=== PATIENT | male | born 1940 | race Caucasian/White ===

== ENCOUNTER 2019-02-23 14:21 | Inpatient (IN) ==
[2019-02-23 15:06] LABS: Basophils % 0.2 %; Eosinophils # 0.1 K/mcL (0.0-0.6); Eosinophils % 0.9 %; Immature Granulocytes % 0.6 % (0-4); Mean Corpuscular HGB Conc 31.3 g/dL (31.6-35.5); Mean Platelet Volume 10.1 fL (9.4-12.4); Monocytes # 0.5 K/mcL (0.0-1.3); Monocytes % 7.6 %; Platelet Count 267 K/mcL (140-400); Red Cell Distribution Width 17.1 % (11.5-14.5); Segmented Neutrophils % 75.7 %; White Blood Count 6.5 K/mcL (4.3-11.1)
[2019-02-23 15:28] LABS: BUN/Creatinine Ratio 16 (6-26); Blood Urea Nitrogen 17 mg/dL (8-23); Calcium 8.7 mg/dL (8.6-10.3); Carbon Dioxide 25 mEq/L (23-29); Chloride 100 mEq/L (98-107); Glucose 106 mg/dL (70-105); Osmolality,Calculated 278 (280-300); Potassium 4.4 mEq/L (3.5-5.1); Sodium 133 mEq/L (136-145); Troponin I < 0.03 ng/mL (< 0.04); eGFR For African Americans > 60 (> 60); eGFR For Non-African Americans > 60 (> 60)
[2019-02-23] MEDS ORDERED: cefTRIAXone 1,000 MG in Water for inj. (sterile) 10 ML IVP ONE (16:07)
[2019-02-23] MEDS ORDERED: Azithromycin 500 MG in D5% in Water 250 ML IVPB ONE (16:07)
[2019-02-23] MEDS ORDERED: Furosemide 40 MG/4 ML VIAL IVP ONE (16:08)
[2019-02-23] MEDS ORDERED: Pantoprazole 40 MG VIAL IVP ONE (16:11)
--- NOTE | 2019-02-23 16:12 | Emergency Department Note ---
Disposition Clinical Impression: CHF exacerbation Qualifiers: Heart failure type: unspecified Qualified Code(s): I50.9 - Heart failure, unspecified Anemia Qualifiers: Anemia type: unspecified type Qualified Code(s): D64.9 - Anemia, unspecified Pneumonia Qualifiers: Pneumonia type: due to unspecified organism Laterality: unspecified laterality Lung location: unspecified part of lung Qualified Code(s): J18.9 - Pneumonia, unspecified organism Disposition: Admitted As Inpatient Referrals: Mary Segura MD [Primary Care Provider] - Forms: ED Satisfaction Letter Time of Disposition: 17:06 General Adult HPI - General Chief complaint: ED Shortness of Breath/Dyspnea Stated complaint: CHF exacerbation Time Seen by Provider: 02/23/19 15:01 Source: patient Limitations: no limitations Nursing Notes Reviewed: Yes Vital Signs Reviewed: Yes - History of Present Illness HPI Narrative: 70-year-old male presents emergency department with concern for increasing shortness of breath or last few days. Reports that he has been sitting in a recliner. Patient was recently admitted for concern for legionnaire's disease as he was having excessive diarrhea. Patient reports undulating fever the last several days. He has had increasing peripheral edema as well. Patient denies any cough, but does report shortness of breath, no chest pain, does report black stools. Pain Scale: 0 - Related Data Home Medications Medication Instructions Recorded Confirmed Albuterol Sulfate [Ventolin Hfa] 2 puff IH Q4H PRN 09/21/16 02/23/19 Budesonide/Formoterol 160/4.5 2 puff IH BIDR 09/21/16 02/23/19 [Symbicort 160/4.5] Metoprolol [Lopressor] 25 mg PO DAILY 09/21/16 02/23/19 Pantoprazole Sodium [Protonix] 40 mg PO DAILY 09/21/16 02/23/19 Simvastatin [Zocor] 40 mg PO HS 09/21/16 02/23/19 Tamsulosin [Flomax] 0.4 mg PO DAILY 09/21/16 02/23/19 Apixaban [Eliquis] 5 mg PO DAILY 01/19/17 02/23/19 Fluticasone Propionate Nasal 2 spray NS DAILY 01/19/17 02/23/19 [Flonase] Allergies Allergy/AdvReac Type Severity Reaction Status Date / Time acetaminophen [From Percocet] AdvReac Unknown Verified 02/17/19 08:43 dutasteride [From Avodart] AdvReac Worsening Verified 02/17/19 08:43 urination oxycodone [From Percocet] AdvReac Unknown Verified 02/17/19 08:43 All systems ED: reviewed and negative except as stated. Review of Systems: As Per HPI Constitutional: Reports: fever Cardiovascular: Denies: chest pain Respiratory: Reports: dyspnea, sputum production. Denies: cough Gastrointestinal: Reports: melena. Denies: abdominal pain, nausea, vomiting Genitourinary: Denies: dysuria Past Medical History - Past Medical History Attestation: Yes The following information was validated with the patient. Medical history: Reports: arthritis, atrial fibrillation, CHF, coronary artery disease, GERD, hypertension Surgical history: Reports: coronary bypass (CABG) Psychiatric history: Reports: no psych history - Social History Smoking Status: Former smoker Smokeless Tobacco Status: No Alcohol use: Reports: occasionally Drug use: Reports: none Physical Exam - General Limitations: no limitations General appearance: alert, in no apparent distress - Head Head exam: normocephalic - Eye Eye exam: Present: EOMI, scleral icterus - ENT ENT exam: mucous membranes moist - Neck Neck exam: Present: trachea midline - Chest Chest inspection: Present: symmetric chest wall rise - Respiratory Respiratory exam: Present: normal lung sounds bilaterally. Absent: respiratory distress, accessory muscle use - Cardiovascular Cardiovascular exam: Present: regular rate, irregular rhythm - Abdominal Exam Abdominal exam: Present: soft, Non-Tender. Absent: distention, guarding, rebound, rigidity - Extremities Exam Extremities exam: Present: normal capillary refill - Back Exam Back exam: Present: full ROM - Neurological Exam Neurological exam: Present: alert, oriented X3 - Psychiatric Psychiatric exam: Present: normal affect, normal mood - Skin Skin exam: Present: warm, dry, intact, normal color. Absent: rash Course Vital Signs Temperature 97.9 F 02/23/19 14:26 Pulse Rate 90 02/23/19 14:26 Respiratory Rate 18 02/23/19 14:26 Blood Pressure 133/71 02/23/19 14:26 O2 Sat by Pulse Oximetry 96 02/23/19 14:26 Temperature 97.9 F 02/23/19 14:26 Pulse Rate 81 02/23/19 16:53 Respiratory Rate 16 02/23/19 16:53 Blood Pressure 138/89 02/23/19 16:53 O2 Sat by Pulse Oximetry 98 02/23/19 16:53 Oxygen Delivery Oxygen Delivery Room Air Medical Decision Making - MDM Narrative Medical decision making narrative: 78-year-old male this emergency department with concern for increasing shortness of breath. EKG did not reveal any ischemic ST changes. Troponin negative. BNP mildly increased from baseline. Chest x-ray that was obtained reveals interval worsening of coarse reticular opacities throughout the lungs that is suggestive of pulmonary edema with atypical infection considered less likely. Patient with history of COPD. Also concern that patient may be more anemic. Have held off on administering steroids at this time as patient does not appear to be having a COPD exacerbation in the setting of possible gastrointestinal bleed. We have sent a Hemoccult and have given a dose of Protonix for reports of melenic stool in the setting of worsening anemia. Patient was given Rocephin, azithromycin, vancomycin. We have sent a Legionella, strep, MRSA swab. Hepatic transaminases were normal out of concern for possibility and patient may have been jaundiced. Patient was given a dose of Lasix for his pulmonary edema. At time of admission, patient not in any acute distress and hemodynamically stable. Dr. Esqueda agreed to accept the patient for admission. Family agree with plan. Chest X-Ray 02/23/19 14:29 IMPRESSION: 1. Interval worsening of coarse reticular opacities throughout the lungs suggestive of pulmonary edema. Atypical infection is considered less likely but can have a similar appearance. 2. COPD. 3. Cardiomegaly. D/ / 02/23/2019 15:56:06 Crystal Chun MD / [facility] Interpreting Provider: Crystal Chun MD - Lab Data Result diagrams: 02/23/19 14:52 02/23/19 14:52 Lab Results 02/23/19 02/23/19 02/23/19 Range/Units 14:52 14:52 14:52 WBC 6.5 (4.3-11.1) K/mcL RBC 4.00 L (4.19-5.50) M/mcL Hgb 10.0 L (12.9-16.9) g/dL Hct 32.0 L (37.5-50.1) % MCV 80.0 L (83.0-100.0) fL MCH 25.0 L (28.0-33.3) pg MCHC 31.3 L (31.6-35.5) g/dL RDW 17.1 H (11.5-14.5) % Plt Count 267 (140-400) K/mcL MPV 10.1 (9.4-12.4) fL Immature Gran % 0.6 (0-4) % Seg Neutrophils % 75.7 % Lymphocytes % 15.0 % Monocytes % 7.6 % Eosinophils % 0.9 % Basophils % 0.2 % Neutrophils # 5.0 (1.6-8.9) K/mcL Lymphocytes # 1.0 (0.6-4.6) K/mcL Monocytes # 0.5 (0.0-1.3) K/mcL Eosinophils # 0.1 (0.0-0.6) K/mcL Basophils # 0.0 (0.0-0.2) K/mcL Sodium 133 L (136-145) mEq/L Potassium 4.4 (3.5-5.1) mEq/L Chloride 100 (98-107) mEq/L Carbon Dioxide 25 (23-29) mEq/L BUN 17 (8-23) mg/dL Creatinine 1.08 (0.70-1.30) mg/dL Est GFR ( Amer) > 60 (> 60) Est GFR (Non-Af Amer) > 60 (> 60) BUN/Creatinine Ratio 16 (6-26) Glucose 106 H (70-105) mg/dL Calculated Osmolality 278 L (280-300) Lactic Acid 1.6 (0.5-2.2) mmol/L Calcium 8.7 (8.6-10.3) mg/dL Total Bilirubin 0.7 (0.3-1.0) mg/dL Direct Bilirubin 0.2 (0.0-0.2) mg/dL Indirect Bilirubin 0.5 (0.0-1.2) mg/dL AST 25 (13-39) Units/L ALT 24 (7-52) Units/L Alkaline Phosphatase 139 H (34-104) Units/L Troponin I < 0.03 (< 0.04) ng/mL B-Natriuretic Peptide (Less than 100) pg/mL Serum Total Protein 6.9 (6.4-8.9) g/dL Albumin 3.4 L (3.5-5.7) g/dL Globulin 3.5 (2.4-3.5) g/dL Albumin/Globulin Ratio 1.0 L (1.1-2.2) Lipase 26 (11-82) Units/L Stool Occult Bld Scrn (Negative) 02/23/19 02/23/19 Range/Units 14:52 16:44 WBC (4.3-11.1) K/mcL RBC (4.19-5.50) M/mcL Hgb (12.9-16.9) g/dL Hct (37.5-50.1) % MCV (83.0-100.0) fL MCH (28.0-33.3) pg MCHC (31.6-35.5) g/dL RDW (11.5-14.5) % Plt Count (140-400) K/mcL MPV (9.4-12.4) fL Immature Gran % (0-4) % Seg Neutrophils % % Lymphocytes % % Monocytes % % Eosinophils % % Basophils % % Neutrophils # (1.6-8.9) K/mcL Lymphocytes # (0.6-4.6) K/mcL Monocytes # (0.0-1.3) K/mcL Eosinophils # (0.0-0.6) K/mcL Basophils # (0.0-0.2) K/mcL Sodium (136-145) mEq/L Potassium (3.5-5.1) mEq/L Chloride (98-107) mEq/L Carbon Dioxide (23-29) mEq/L BUN (8-23) mg/dL Creatinine (0.70-1.30) mg/dL Est GFR ( Amer) (> 60) Est GFR (Non-Af Amer) (> 60) BUN/Creatinine Ratio (6-26) Glucose (70-105) mg/dL Calculated Osmolality (280-300) Lactic Acid (0.5-2.2) mmol/L Calcium (8.6-10.3) mg/dL Total Bilirubin (0.3-1.0) mg/dL Direct Bilirubin (0.0-0.2) mg/dL Indirect Bilirubin (0.0-1.2) mg/dL AST (13-39) Units/L ALT (7-52) Units/L Alkaline Phosphatase (34-104) Units/L Troponin I (< 0.04) ng/mL B-Natriuretic Peptide 617 H (Less than 100) pg/mL Serum Total Protein (6.4-8.9) g/dL Albumin (3.5-5.7) g/dL Globulin (2.4-3.5) g/dL Albumin/Globulin Ratio (1.1-2.2) Lipase (11-82) Units/L Stool Occult Bld Scrn Negative (Negative) - EKG Data EKG #1 EKG attestation: Yes I reviewed and interpreted this EKG. EKG results narrative: 14:36 Ventricular rate 82 bpm, CA interval: No P waves, QRS duration 103 ms, QT 381 ms, left axis deviation. Atrial fibrillation with no ischemic ST changes. Compared to previous study obtained on February 17, 2019.
[2019-02-23 16:19] LABS: Alanine Aminotransferase 24 Units/L (7-52); Albumin 3.4 g/dL (3.5-5.7); Alkaline Phosphatase 139 Units/L (34-104); Aspartate Amino Transferase 25 Units/L (13-39); Bilirubin,Direct 0.2 mg/dL (0.0-0.2); Bilirubin,Indirect 0.5 mg/dL (0.0-1.2); Bilirubin,Total 0.7 mg/dL (0.3-1.0); Globulin 3.5 g/dL (2.4-3.5); Lipase 26 Units/L (11-82); Total Protein 6.9 g/dL (6.4-8.9)
--- NOTE | 2019-02-23 16:52 | Internal Med History&Physical ---
Date of Encounter: 02/23/19 Time of Encounter: 16:52 Internal Medicine - H&P: HPI Chief complaint: Shortness of breath Admitted From: Emergency Dept Plans for Post Hospital Care: Home History of present illness: Mr. Cantu is a 78 year old male patient with history of COPD not on home oxygen, CAD status post CABG 3 vessel, atrial fibrillation following cardiology Dr. Fu presented to ER with complaint of increasing shortness of breath for last 2 weeks but today it was worse therefore decided to come to emergency room. Patient also complained of intermittent fever maximum 102 or 1 week, intermittent diarrhea that get better with Imodium for 2 week. Yesterday patient was admitted to his primary care physician who did blood tests and found BNP very high almost 3000 as per patient therefore advised to come to emergency room. In ER vitals are stable. Initial lab with low hemoglobin him a normal troponin, raised BNP. Chest x-ray with concern of pulmonary edema. Lasix 40 mg IV and broader spectrum antibiotic Rocephin, Zithromax, vancomycin as started in the ER. 3 weeks ago patient got admitted in [facility] for eye surgery after the accident. During that time. There was outbreak for Legionella but he did had workup done. Patient denies nausea vomiting headache dizziness chest pain abdominal pain urinary complaint Past Med Surg Social Fam HX - Past Medical History Medical history: arthritis, atrial fibrillation, CHF, coronary artery disease, GERD, hypertension Additional medical history: Prostatitis. RLS. Irregular Heart Beat. Sleep Apnea Psychiatric history: no psych history - Past Surgical History Surgical History: coronary bypass (CABG) Additional surgical history: Bilateral Total Knee. Hammer toe Right Foot. Left Shoulder Replacement. Septoplasty. orbital repair. Prostate surgery - Social History Smoking Status: Former smoker Smokeless Tobacco Status: No Alcohol use: occasionally Drug use: none Internal Medicine - H&P: Meds Albuterol Sulfate [Ventolin Hfa] 2 puff IH Q4H PRN 09/21/16 [History] Budesonide/Formoterol 160/4.5 [Symbicort 160/4.5] 2 puff IH BIDR 09/21/16 [History] Metoprolol [Lopressor] 25 mg PO DAILY 09/21/16 [History] Pantoprazole Sodium [Protonix] 40 mg PO DAILY 09/21/16 [History] Simvastatin [Zocor] 40 mg PO HS 09/21/16 [History] Tamsulosin [Flomax] 0.4 mg PO DAILY 09/21/16 [History] Apixaban [Eliquis] 5 mg PO DAILY 01/19/17 [History] Fluticasone Propionate Nasal [Flonase] 2 spray NS DAILY 01/19/17 [History] Allergy/AdvReac Type Severity Reaction Status Date / Time acetaminophen [From Percocet] AdvReac Unknown Verified 02/17/19 08:43 dutasteride [From Avodart] AdvReac Worsening Verified 02/17/19 08:43 urination oxycodone [From Percocet] AdvReac Unknown Verified 02/17/19 08:43 All Systems PM: A 10-system review of systems was performed and is negative for pertinent findings except as documented above in the HPI. - Constitutional Vitals: Temp Pulse Resp BP Pulse Ox 97.9 F 72 18 132/79 98 02/23/19 14:26 02/23/19 15:30 02/23/19 15:30 02/23/19 15:30 02/23/19 15:30 Exam: General appearance: No acute distress, A&O X 3 Head exam: Atraumatic Eye exam: EOMI, PERRLA. Slight puffiness under the eyes ENT exam: Moist oral mucosa Neck nontender, supple Respiratory exam: Bibasilar crepitation more on the left side with decreased breath sound. Cardiovascular exam: Regular rate and rhythm, no systolic murmur Abdominal exam: Soft, nontender, nondistended, positive bowel sounds Extremities exam: No calf tenderness, +1 pedal edema Present. Left lower extremity-healing wound after taking a skin graft Skin-no rash, warm, dry, intact Neurological exam: Alert, awake, oriented 3, CN II-XII intact, no focal deficits. No facial droop. Normal speech. Internal Med - H&P Results - Labs CBC & Chem 7: 02/23/19 14:52 02/23/19 14:52 Labs: Short CBC 02/23/19 Range/Units 14:52 WBC 6.5 (4.3-11.1) K/mcL Hgb 10.0 L (12.9-16.9) g/dL Hct 32.0 L (37.5-50.1) % Plt Count 267 (140-400) K/mcL Neutrophils # 5.0 (1.6-8.9) K/mcL BMP 02/23/19 14:52 Sodium 133 L Potassium 4.4 Chloride 100 Carbon Dioxide 25 BUN 17 Creatinine 1.08 Glucose 106 H Calcium 8.7 Cardiac Enzymes 02/23/19 Range/Units 14:52 Troponin I < 0.03 (< 0.04) ng/mL Liver Function 02/23/19 Range/Units 14:52 Total Bilirubin 0.7 (0.3-1.0) mg/dL Direct Bilirubin 0.2 (0.0-0.2) mg/dL AST 25 (13-39) Units/L ALT 24 (7-52) Units/L Alkaline Phosphatase 139 H (34-104) Units/L Albumin 3.4 L (3.5-5.7) g/dL - Impressions ITS Impressions Chest X-Ray 02/23/19 14:29 IMPRESSION: 1. Interval worsening of coarse reticular opacities throughout the lungs suggestive of pulmonary edema. Atypical infection is considered less likely but can have a similar appearance. 2. COPD. 3. Cardiomegaly. D/ / 02/23/2019 15:56:06 Crystal Chun MD / [facility] Interpreting Provider: Crystal Chun MD - Assessment and Plan (1) Shortness of breath Current Visit: Yes Status: Acute Assessment and plan: Progressive worsening of shortness of breath. Multiple etiology-patient has crepitation in the lung +1 pedal edema, lungs with crepitation, increased BNP, chest x-ray with vascular congestion possible pulmonary edema. Patient denies history of CHF but had history of CAD. Possible CHF exacerbation. Will treat patient with IV Lasix twice a day, a strict I&O's and daily weight. Possibility for underlying pneumonia as well as patient had intermittent fever for last 1 week, recent hospitalization at [facility] 3 weeks ago for eye surgery- respiratory panel, urine Legionella and Streptococcus, sputum culture ordered. ER physician is started Rocephin, Zithromax and vancomycin-will continue antibiotic same. Nasal swab for MRSA screening ordered. DuoNeb, incentive spirometry oxygen supplementation as needed. D-dimer also ordered to rule out underlying pulmonary embolism due to recent hospitalization and surgery-though less likely as patient is already on Eliquis. (2) Pulmonary edema Current Visit: Yes Status: Acute Assessment and plan: Based on chest x-ray. As mentioned above. Qualifiers: Chronicity: acute Qualified Code(s): J81.0 - Acute pulmonary edema (3) CHF exacerbation Current Visit: Yes Status: Acute Assessment and plan: Possible. Please see above for detail. Echocardiogram ordered. Will consider cardiology consultation if any concern. Initial troponin negative. Serial troponin. Telemetry bed. Qualifiers: Heart failure type: unspecified Qualified Code(s): I50.9 - Heart failure, unspecified (4) CAD (coronary artery disease) Current Visit: Yes Status: Acute Assessment and plan: Status post CABG 3 vessel 10 years ago. Patient follows cardiology Dr. Enriquez at [place]. Continue home medicine Qualifiers: Coronary Disease-Associated Artery/Lesion type: unspecified vessel or lesion type [place] vs. transplanted heart: [place] heart Associated angina: without angina Qualified Code(s): I25.10 - Atherosclerotic heart disease of [place] coronary artery without angina pectoris (5) Atrial fibrillation Current Visit: Yes Status: Acute Assessment and plan: Rate is controlled. Irregular rhythm. Continue home medicine Qualifiers: Atrial fibrillation type: chronic Qualified Code(s): I48.2 - Chronic atrial fibrillation (6) COPD (chronic obstructive pulmonary disease) Current Visit: Yes Status: Acute Assessment and plan: Does not appear in exacerbation. Continue home medicine Qualifiers: COPD type: chronic bronchitis Chronic bronchitis type: unspecified Qualified Code(s): J42 - Unspecified chronic bronchitis (7) Pneumonia Current Visit: Yes Status: Acute Assessment and plan: Sputum culture. Please see above. Qualifiers: Pneumonia type: due to unspecified organism Laterality: unspecified laterality Lung location: unspecified part of lung Qualified Code(s): J18.9 - Pneumonia, unspecified organism (8) Anemia Current Visit: Yes Status: Acute Assessment and plan: Last hemoglobin 11.0 on 02/17/2019. Hemoglobin 14.2 in February 2017. No active bleeding. Stool occult negative. Will consider an anemia panel. Qualifiers: Anemia type: unspecified type Qualified Code(s): D64.9 - Anemia, unspecified (9) Diarrhea Current Visit: No Status: Acute Assessment and plan: Chronic for almost 2 weeks. Associated with fever. GI panel ordered. Qualifiers: Diarrhea type: unspecified type Qualified Code(s): R19.7 - Diarrhea, unspecified (10) DVT prophylaxis Current Visit: Yes Status: Acute Assessment and plan: Continue Eliquis. - Time Spent With Patient Total time spent is greater than 50% in coordination of care (as documented) at patient's floor/unit and/or counseling patient: Greater than 35 minutes
[2019-02-23 17:15] LABS: INR 1.3; Prothrombin Time 14.8 Seconds (9.4-12.1)
[2019-02-23] MEDS ORDERED: Naloxone 0.4 MG/ML INJ IVP PRN (17:20)
[2019-02-23] MEDS ORDERED: Ondansetron 4 MG/2 ML VIAL IVP PRN (17:20)
[2019-02-23] MEDS ORDERED: Furosemide 40 MG/4 ML VIAL IVP SCH (18:00)
[2019-02-23 18:14] LABS: Magnesium 2.1 mg/dL (1.6-2.6)
[2019-02-23 18:15] LABS: Troponin I < 0.03 ng/mL (< 0.04)
[2019-02-23] MEDS: Azithromycin 500 MG in D5% in Water 250 ML IVPB SCH (20:19)
[2019-02-23 22:01] LABS: Bilirubin,Urine Negative (Negative); Blood,Urine Negative (Negative); Clarity,Urine Clear (Clear); Color,Urine Yellow (Yellow); Glucose,Urine (UA) Normal (Normal); Ketones,Urine Negative (Negative); Leukocyte Esterase,Urine Negative (Negative); Nitrite,Urine Negative (Negative); PH,Urine 6.5 pH Units (5.0-8.0); Protein,Urine Negative (Neg-Trace); Specific Gravity,Urine < 1.005 (1.010-1.025); Urobilinogen,Urine Normal (Normal)
[2019-02-23] MEDS: Budesonide/Formoterol 160/4.5 1 PUFF INH IH SCH (22:49)
[2019-02-23] MEDS: Acetaminophen 325 MG TABLET PO PRN (22:54)
[2019-02-24 02:33] LABS: Hematocrit 30.2 % (37.5-50.1); Hemoglobin 9.4 g/dL (12.9-16.9); Mean Corpuscular HGB Conc 31.1 g/dL (31.6-35.5); Mean Corpuscular Hemoglobin 24.4 pg (28.0-33.3); Mean Corpuscular Volume 78.2 fL (83.0-100.0); Mean Platelet Volume 9.8 fL (9.4-12.4); Platelet Count 265 K/mcL (140-400); Red Blood Count 3.86 M/mcL (4.19-5.50); Red Cell Distribution Width 17.2 % (11.5-14.5); White Blood Count 7.1 K/mcL (4.3-11.1)
[2019-02-24 02:52] LABS: BUN/Creatinine Ratio 17 (6-26); Blood Urea Nitrogen 19 mg/dL (8-23); Calcium 8.5 mg/dL (8.6-10.3); Carbon Dioxide 22 mEq/L (23-29); Chloride 101 mEq/L (98-107); Chol/HDL Ratio 3.2 (0-4.9); Cholesterol 80 mg/dL (< 200); Glucose 98 mg/dL (70-105); HDL Cholesterol 25 mg/dL (40-59); LDL Cholesterol,Calculated 40 mg/dL (0-99); Osmolality,Calculated 280 (280-300); Sodium 134 mEq/L (136-145); Triglycerides 75 mg/dL (< 150); eGFR For African Americans > 60 (> 60); eGFR For Non-African Americans > 60 (> 60)
[2019-02-24 07:13] LABS: Adenovirus Not Detected (Not Detect); Bordetella Pertussis Not Detected (Not Detect); Chlamydophila pneumoniae Not Detected (Not Detect); Coronavirus 229E Not Detected (Not Detect); Coronavirus HKU1 Not Detected (Not Detect); Coronavirus NL63 Not Detected (Not Detect); Coronavirus OC43 Not Detected (Not Detect); Human Metapneumovirus Not Detected (Not Detect); Human Rhinovirus/Enterovirus Not Detected (Not Detect); Influenza A Subtype 2009 H1 Not Detected (Not Detect); Influenza A Untypeable Not Detected (Not Detect); Influenza B Not Detected (Not Detect); Mycoplasma pneumoniae Not Detected (Not Detect); Parainfluenza Virus 1 Not Detected (Not Detect); Parainfluenza Virus 2 Not Detected (Not Detect); Parainfluenza Virus 3 Not Detected (Not Detect); Parainfluenza Virus 4 Not Detected (Not Detect); Respiratory Syncytial Virus Not Detected (Not Detect)
[2019-02-24] MEDS: Budesonide/Formoterol 160/4.5 1 PUFF INH IH SCH ×2 (07:40→21:52)
[2019-02-24] MEDS ORDERED: Furosemide 40 MG/4 ML VIAL IVP SCH (08:00)
[2019-02-24] MEDS: Acetaminophen 325 MG TABLET PO PRN ×2 (09:22→18:37)
[2019-02-24] MEDS: Apixaban 5 MG TABLET PO SCH (09:22)
[2019-02-24] MEDS: Fluticasone Propionate Nasal 50 MCG/SPRAY BOTTLE NS SCH (09:23)
[2019-02-24] MEDS ORDERED: Isovue-370 500 ML BOTTLE IVP ONE (12:38)
--- NOTE | 2019-02-24 12:42 | Internal Med Progress Note ---
Hospitalist Progress Note - Encounter Date of Encounter: 02/24/19 Time of Encounter: 12:37 - Subjective Interval History: Patient is still complaint of shortness of breath but better. Had good urine output almost 500 negative balance. Review the vitals and lab. Raised d-dimer. Patient denies fever chills nausea vomiting headache dizziness chest pain abdominal pain. No bowel movements since admission - Exam Vitals: Temp Pulse Resp BP Pulse Ox 98.1 F 84 16 109/75 96 02/24/19 11:03 02/24/19 11:03 02/24/19 11:03 02/24/19 11:03 02/24/19 11:03 Exam: General appearance: No acute distress, A&O X 3 he had at bedside Eye exam: EOMI, PERRLA. ENT exam: Moist oral mucosa Neck nontender, supple Respiratory exam: Bibasilar crepitation more on the left side with decreased breath sound-better. Cardiovascular exam: Regular rate and rhythm, no systolic murmur Abdominal exam: Soft, nontender, nondistended, positive bowel sounds Extremities exam: No calf tenderness, +1 pedal edema Present. Left lower extremity-healing wound after taking a skin graft Skin-no rash, warm, dry, intact Neurological exam: Alert, awake, oriented 3, CN II-XII intact, no focal deficits. No facial droop. Normal speech. - Assessment and Plan (1) Shortness of breath Current Visit: Yes Status: Acute Assessment and Plan: Progressive worsening of shortness of breath. Multiple etiology-patient has crepitation in the lung +1 pedal edema, lungs with crepitation, increased BNP, chest x-ray with vascular congestion possible pulmonary edema. Patient denies history of CHF but had history of CAD. Possible CHF exacerbation. Will treat patient with IV Lasix twice a day, a strict I&O's and daily weight. Possibility for underlying pneumonia as well as patient had intermittent fever for last 1 week, recent hospitalization at [facility] 3 weeks ago for eye surgery-respiratory panel, urine Legionella and Streptococcus, sputum culture ordered. ER physician is started Rocephin, Zithromax and vancomycin-will continue antibiotic same. Nasal swab for MRSA screening ordered. DuoNeb, incentive spirometry oxygen supplementation as needed. D-dimer also ordered to rule out underlying pulmonary embolism due to recent hospitalization and surgery-though less likely as patient is already on Eliquis. 02/24/2019 Respiratory panel negative, stool occult negative, nasal swab for MRSA negative, urine Legionella and Streptococcus negative Stopped vancomycin. 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 Quinonez outpatient next month Echocardiogram is still pending Decreased Lasix dose 40 mg IV daily instead twice daily as low normal blood pressure (2) Pulmonary edema Current Visit: Yes Status: Acute Assessment and Plan: Based on chest x-ray. As mentioned above. Will repeat chest x-ray if needed (3) CHF exacerbation Current Visit: Yes Status: Acute Assessment and Plan: Possible. Please see above for detail. Will consider cardiology consultation if any concern. Serial troponin negative. Telemetry bed. (4) CAD (coronary artery disease) Current Visit: Yes Status: Acute Assessment and Plan: Status post CABG 3 vessel 10 years ago. Patient follows cardiology Dr. Enriquez at [place]. Continue home medicine (5) Atrial fibrillation Current Visit: Yes Status: Acute Assessment and Plan: With RVR. Heart rate 124 on telemetry. Increase metoprolol 50 mg by mouth twice a day. Continue Eliquis (6) COPD (chronic obstructive pulmonary disease) Current Visit: Yes Status: Acute Assessment and Plan: Does not appear in exacerbation. Continue home medicine (7) Pneumonia Current Visit: Yes Status: Acute Assessment and Plan: Possibility. Please see above. (8) Anemia Current Visit: Yes Status: Acute Assessment and Plan: On admission hemoglobin 10.0. Last hemoglobin 11.0 on 02/17/2019. Hemoglobin 14.2 in February 2017. No active bleeding. Stool occult negative. Will consider an anemia panel. (9) Diarrhea Current Visit: No Status: Acute Assessment and Plan: Chronic for almost 2 weeks. Associated with fever. GI panel ordered. Patient did not have any bowel movement since admission (10) DVT prophylaxis Current Visit: Yes Status: Acute Assessment and Plan: Continue Eliquis. - Time Spent with Patient Total time spent is greater than 50% in coordination of care (as documented) at patient's floor/unit and/or counseling patient: Greater than 35 minutes Plan of Care Discussed with: patient Internal Medicine: Result - Labs CBC & Chem 7: 02/24/19 02:18 02/24/19 02:18 Labs: Short CBC 02/23/19 02/24/19 Range/Units 14:52 02:18 WBC 6.5 7.1 (4.3-11.1) K/mcL Hgb 10.0 L 9.4 L (12.9-16.9) g/dL Hct 32.0 L 30.2 L (37.5-50.1) % Plt Count 267 265 (140-400) K/mcL Neutrophils # 5.0 (1.6-8.9) K/mcL BMP 02/23/19 02/24/19 14:52 02:18 Sodium 133 L 134 L Potassium 4.4 4.0 Chloride 100 101 Carbon Dioxide 25 22 L BUN 17 19 Creatinine 1.08 1.13 Glucose 106 H 98 Calcium 8.7 8.5 L Cardiac Enzymes 02/23/19 02/23/19 02/24/19 Range/Units 14:52 17:37 00:06 Troponin I < 0.03 < 0.03 < 0.03 (< 0.04) ng/mL Liver Function 02/23/19 Range/Units 14:52 Total Bilirubin 0.7 (0.3-1.0) mg/dL Direct Bilirubin 0.2 (0.0-0.2) mg/dL AST 25 (13-39) Units/L ALT 24 (7-52) Units/L Alkaline Phosphatase 139 H (34-104) Units/L Albumin 3.4 L (3.5-5.7) g/dL Urine 02/23/19 Range/Units 21:45 Urine Color Yellow (Yellow) Urine Clarity Clear (Clear) Urine pH 6.5 (5.0-8.0) pH Units Ur Specific [place] < 1.005 L (1.010-1.025) Urine Protein Negative (Neg-Trace) mg/dL Urine Glucose (UA) Normal (Normal) mg/dL - ABG Interpretation ABG results: PT/INR, D-dimer PT 14.8 Seconds (9.4-12.1) H 02/23/19 16:49 1489 ng/mLFEU (0-500) H 02/23/19 16:49 - Impressions Impressions Chest X-Ray 02/23/19 14:29 IMPRESSION: 1. Interval worsening of coarse reticular opacities throughout the lungs suggestive of pulmonary edema. Atypical infection is considered less likely but can have a similar appearance. 2. COPD. 3. Cardiomegaly. D/ / 02/23/2019 15:56:06 Crystal Chun MD / joel Interpreting Provider: Crystal Chun MD Consult Discharge Plan - Plan Referrals: Mary Segura MD [Primary Care Provider] - (2) Pulmonary edema Qualifiers: Chronicity: acute Qualified Code(s): J81.0 - Acute pulmonary edema (3) CHF exacerbation Qualifiers: Heart failure type: unspecified Qualified Code(s): I50.9 - Heart failure, unspecified (4) CAD (coronary artery disease) Qualifiers: Coronary Disease-Associated Artery/Lesion type: unspecified vessel or lesion type [place] vs. transplanted heart: [place] heart Associated angina: without angina Qualified Code(s): I25.10 - Atherosclerotic heart disease of [place] coronary artery without angina pectoris (5) Atrial fibrillation Qualifiers: Atrial fibrillation type: chronic Qualified Code(s): I48.2 - Chronic atrial fibrillation (6) COPD (chronic obstructive pulmonary disease) Qualifiers: COPD type: chronic bronchitis Chronic bronchitis type: unspecified Qualified Code(s): J42 - Unspecified chronic bronchitis (7) Pneumonia Qualifiers: Pneumonia type: due to unspecified organism Laterality: unspecified laterality Lung location: unspecified part of lung Qualified Code(s): J18.9 - Pneumonia, unspecified organism (8) Anemia Qualifiers: Anemia type: unspecified type Qualified Code(s): D64.9 - Anemia, unspecified (9) Diarrhea Qualifiers: Diarrhea type: unspecified type Qualified Code(s): R19.7 - Diarrhea, unspecified
[2019-02-24 13:31] LABS: % Iron Saturation 9 % (20-55); Iron 25 mcg/dL (65-175); Transferrin 194 mg/dL (203-362)
[2019-02-24 13:44] LABS: Ferritin 124 ng/mL (20-250)
[2019-02-24 15:32] LABS: Folate 12.7 ng/mL (3.0-16.0)
[2019-02-24 15:34] LABS: Vitamin B12 > 1500 pg/mL (250-1100)
[2019-02-24] MEDS ORDERED: Aminoglycoside Consult 1 EACH MC ONE (16:41)
[2019-02-24] MEDS: Azithromycin 500 MG in D5% in Water 250 ML IVPB SCH (17:19)
[2019-02-24] MEDS: cefTRIAXone 1,000 MG in Water for inj. (sterile) 20 ML IVP SCH (17:26)
[2019-02-25 04:01] LABS: Basophils % 0.4 %; Eosinophils # 0.3 K/mcL (0.0-0.6); Eosinophils % 4.3 %; Hematocrit 33.5 % (37.5-50.1); Hemoglobin 10.5 g/dL (12.9-16.9); Immature Granulocytes % 1.3 % (0-4); Lymphocytes # 1.4 K/mcL (0.6-4.6); Lymphocytes % 18.3 %; Mean Corpuscular HGB Conc 31.3 g/dL (31.6-35.5); Mean Corpuscular Hemoglobin 24.9 pg (28.0-33.3); Mean Corpuscular Volume 79.6 fL (83.0-100.0); Mean Platelet Volume 10.1 fL (9.4-12.4); Monocytes # 0.6 K/mcL (0.0-1.3); Neutrophils # 5.4 K/mcL (1.6-8.9); Platelet Count 346 K/mcL (140-400); Red Blood Count 4.21 M/mcL (4.19-5.50); Red Cell Distribution Width 17.4 % (11.5-14.5); Segmented Neutrophils % 68.7 %; White Blood Count 7.9 K/mcL (4.3-11.1)
[2019-02-25 04:24] LABS: BUN/Creatinine Ratio 17 (6-26); Blood Urea Nitrogen 20 mg/dL (8-23); Carbon Dioxide 24 mEq/L (23-29); Chloride 99 mEq/L (98-107); Glucose 96 mg/dL (70-105); Osmolality,Calculated 282 (280-300); Potassium 4.2 mEq/L (3.5-5.1); Sodium 135 mEq/L (136-145); eGFR For African Americans > 60 (> 60); eGFR For Non-African Americans 59 (> 60)
[2019-02-25 08:22] VITALS: BP 155/88
[2019-02-25] MEDS: Apixaban 5 MG TABLET PO SCH (08:27)
[2019-02-25] MEDS: Fluticasone Propionate Nasal 50 MCG/SPRAY BOTTLE NS SCH (08:30)
[2019-02-25] MEDS: Acetaminophen 325 MG TABLET PO PRN (08:34)
[2019-02-25] MEDS ORDERED: Aspirin 81 MG TAB.CHEW PO SCH (09:00)
[2019-02-25] MEDS ORDERED: Furosemide 40 MG/4 ML VIAL IVP SCH (09:00)
[2019-02-25] MEDS: Budesonide/Formoterol 160/4.5 1 PUFF INH IH SCH (10:55)
--- NOTE | 2019-02-25 11:05 | Discharge Summary ---
- NOTES TO OUTPATIENT PROVIDER Notes to Outpatient Provider: Follow with PCP in 3-5 days-repeat CT chest in 3 months to document resolution CT finding. Follow with cardiology in 1-2 week. Chief follow-up appointment with railroad track mechanic in 1-2 week-history of sarcoidosis Orders not resulted at time of discharge: Pending orders 02/23/19 14:29 EKG [ECG 12 lead ECG] [ECG] Stat 02/23/19 16:49 Culture,Blood [BC] Stat 02/23/19 17:29 Culture,Sputum with Gram Stain [RM] Routine 02/26/19 04:00 BMP [Basic Metabolic Panel] AM 0400 Complete Blood Count [HEME] AM 0400 Date of Encounter: 02/25/19 Time of Encounter: 11:03 - Discharge Diagnosis (1) Shortness of breath Priority: Primary Status: Acute Assessment and Plan: Improving. Patient got admitted for Progressive worsening of shortness of breath. Multiple etiology-patient has crepitation in the lung +1 pedal edema, lungs with crepitation, increased BNP, chest x-ray with vascular congestion possible pulmonary edema. Patient denies history of CHF but had history of CAD. treat patient with IV Lasix twice a day, a strict I&O's and daily weight. Possibility for underlying pneumonia as well as patient had intermittent fever for last 1 week, recent hospitalization at [facility] 3 weeks ago for eye surgery-respiratory panel, urine Legionella and Streptococcus, sputum culture ordered. ER physician is started Rocephin, Zithromax and vancomycin- DuoNeb, incentive spirometry oxygen supplementation as needed. 02/24/2019 Respiratory panel negative, stool occult negative, nasal swab for MRSA negative, urine Legionella and Streptococcus negative Stopped vancomycin. Raised d-dimer-CT angiogram -ruled out PE. Bilateral pulmonary opacity possible pneumonia. Follow-up CT recommended in 3 months to document resolution. Patient has history of known sarcoidosis in follow railroad track mechanic on OPD basis. Patient has history of sarcoidosis and supposed to follow railroad track mechanic Dr. Quinonez outpatient next month Echocardiogram is still pending Decreased Lasix dose 40 mg IV daily instead twice daily as low normal blood pressure (2) Pulmonary edema Priority: Primary Status: Acute Assessment and Plan: Improving. Qualifiers: Chronicity: acute Qualified Code(s): J81.0 - Acute pulmonary edema (3) CHF exacerbation Priority: Primary Status: Acute Assessment and Plan: Newly diagnosed . IV Lasix twice a day is started and patient had significant improvement in the symptoms after having good diuresis. Consulted vmware engineer who advise for Lasix 40 mg daily, Aldactone 12.5 mg daily and the time of discharge and follow-up with cardiology clinic. Echocardiogram Impressions: LVEF 55-60%. Indeterminate diastolic function. Mildly dilated right ventricle with mild right ventricular hypokinesis. Mildly dilated left atrium. Moderately dilated right atrium. Mild mitral regurgitation. Moderate tricuspid regurgitation. Mild pulmonary hypertension. Left Ventricular Wall Motion: Rest Echo Findings All wall segments showed normal motion. Qualifiers: Heart failure type: unspecified Qualified Code(s): I50.9 - Heart failure, unspecified (4) CAD (coronary artery disease) Priority: Secondary Status: Acute Assessment and Plan: Status post CABG 3 vessel 10 years ago. Patient follows cardiology Dr. Enriquez at [place]. Continue home medicine Qualifiers: Coronary Disease-Associated Artery/Lesion type: unspecified vessel or lesion type [place] vs. transplanted heart: [place] heart Associated angina: without angina Qualified Code(s): I25.10 - Atherosclerotic heart disease of [place] coronary artery without angina pectoris (5) Atrial fibrillation Priority: Secondary Status: Acute Assessment and Plan: Better control her heart rate after Increasing metoprolol 50 mg by mouth twice a day. Continue Eliquis Qualifiers: Atrial fibrillation type: chronic Qualified Code(s): I48.2 - Chronic atrial fibrillation (6) COPD (chronic obstructive pulmonary disease) Priority: Secondary Status: Acute Assessment and Plan: Does not appear in exacerbation. Continue home medicine Qualifiers: COPD type: chronic bronchitis Chronic bronchitis type: unspecified Qualified Code(s): J42 - Unspecified chronic bronchitis (7) Pneumonia Priority: Primary Status: Acute Assessment and Plan: CT chest with concern of bilateral opacity could be pneumonia. Will discharge patient on Omnicef and Zithromax. Total 10 days antibiotic course Qualifiers: Pneumonia type: due to unspecified organism Laterality: unspecified laterality Lung location: unspecified part of lung Qualified Code(s): J18.9 - Pneumonia, unspecified organism (8) Anemia Priority: Primary Status: Acute Assessment and Plan: On admission hemoglobin 10.0. Last hemoglobin 11.0 on 02/17/2019. Hemoglobin 14.2 in February 2017. No active bleeding. Stool occult negative. Iron yesterday with low iron level but normal ferritin possible AMPARO with chronic disease anemia. Normal vitamin B12 and folate. Further follow-up with PCP Qualifiers: Anemia type: unspecified type Qualified Code(s): D64.9 - Anemia, unspecified (9) Diarrhea Priority: Primary Status: Inactive Assessment and Plan: Chronic for almost 2 weeks. Patient did not had any diarrhea since admission therefore canceled GI panel order Qualifiers: Diarrhea type: unspecified type Qualified Code(s): R19.7 - Diarrhea, unspecified Hospital course: Mr. Cantu is a 78 year old male patient got admitted for new onset of progressive worsening of shortness of breath. Patient got treated for Pulmonary edema, new CHF exacerbation, pneumonia with IV Lasix, IV antibiotic, oxygen supplementation, DuoNeb. Eventually patient is started to improve and progressing to baseline Therefore decided to discharge patient. Please see detail in diagnosis section of discharge summary. At the time of discharge patient clinically and hemodynamically stable, ambulating without assistance, tolerating oral diet and does not require oxygen. Patient needs to follow with primary care physician, cardiology and railroad track mechanic OPD basis. Discharge discussed with: patient, family, nurse, center lead consultant - Time Spent with Patient Total time spent providing and/or coordinating discharge services: Time spent: Less than 30 minutes - Discharge Medications Prescriptions: No Action Simvastatin [Zocor] 40 mg PO HS Budesonide/Formoterol 160/4.5 [Symbicort 160/4.5] 2 puff IH BIDR Metoprolol [Lopressor] 25 mg PO DAILY Pantoprazole Sodium [Protonix] 40 mg PO DAILY Albuterol Sulfate [Ventolin Hfa] 2 puff IH Q4H PRN PRN Reason: Shortness Of Breath Fluticasone Propionate Nasal [Flonase] 2 spray NS DAILY Apixaban [Eliquis] 5 mg PO DAILY Amlodipine Besylate 2.5 mg PO DAILY Furosemide [Lasix] 40 mg PO DAILY Oxybutynin [Ditropan] 5 mg PO DAILY Tamsulosin [Flomax] 0.4 mg PO DAILY Guaifenesin [Mucinex] 1,200 mg PO BID Home Medications: Albuterol Sulfate [Ventolin Hfa] 2 puff IH Q4H PRN 09/21/16 [History] Budesonide/Formoterol 160/4.5 [Symbicort 160/4.5] 2 puff IH BIDR 09/21/16 [History] Pantoprazole Sodium [Protonix] 40 mg PO DAILY 09/21/16 [History] Simvastatin [Zocor] 40 mg PO HS 09/21/16 [History] Apixaban [Eliquis] 5 mg PO DAILY 01/19/17 [History] Fluticasone Propionate Nasal [Flonase] 2 spray NS DAILY 01/19/17 [History] Amlodipine Besylate 2.5 mg PO DAILY 02/24/19 [History] Furosemide [Lasix] 40 mg PO DAILY 02/24/19 [History] Guaifenesin [Mucinex] 1,200 mg PO BID 02/24/19 [History] Oxybutynin [Ditropan] 5 mg PO DAILY 02/24/19 [History] Tamsulosin [Flomax] 0.4 mg PO DAILY 02/24/19 [History] Aspirin 81 mg PO DAILY #30 tab.chew 02/25/19 [Rx] Azithromycin [Zithromax] 500 mg PO DAILY #3 tablet 02/25/19 [Rx] Cefdinir [Omnicef] 300 mg PO BID #14 capsule 02/25/19 [Rx] Metoprolol [Lopressor] 50 mg PO BID #60 tablet 02/25/19 [Rx] Spironolactone [Aldactone] 12.5 mg PO DAILY #30 tablet 02/25/19 [Rx] Allergies/Adverse Reactions: Allergy/AdvReac Type Severity Reaction Status Date / Time dutasteride [From Avodart] AdvReac Worsening Verified 02/24/19 13:15 urination oxycodone [From Percocet] AdvReac Unknown Verified 02/24/19 13:15 Date of admission: 02/24/19 15:25 Primary care physician: Mary Segura MD - Constitutional Vitals: Temp Pulse Resp BP Pulse Ox 98.1 F 110 18 155/88 95 02/25/19 08:18 02/25/19 08:18 02/25/19 10:57 02/25/19 08:18 02/25/19 10:57 Exam: General appearance: No acute distress, A&O X 3 Eye exam: EOMI, PERRLA. ENT exam: Moist oral mucosa Neck nontender, supple Respiratory exam: Bibasilar crepitation more on the left side with decreased breath- improving with better air entry Cardiovascular exam: Regular rate and rhythm, no systolic murmur Abdominal exam: Soft, nontender, nondistended, positive bowel sounds Extremities exam: No calf tenderness, no pedal edema Present. Left lower extremity-healing wound after taking a skin graft Skin-no rash, warm, dry, intact Neurological exam: Grossly intact with no focal neurological deficit - Patient Status Disposition: Home, Self-Care Condition: Good Overall status at discharge: patient is progressing back to baseline - Discharge Instructions Follow Up With: Mary Segura MD [Primary Care Provider] - - Diet and Activity Diet: low fat, low cholesterol, low salt diet
[2019-02-25] MEDS: cefTRIAXone 1,000 MG in Water for inj. (sterile) 20 ML IVP SCH (15:03)
[2019-02-25] MEDS: Azithromycin 500 MG in D5% in Water 250 ML IVPB SCH (15:04)
[2019-02-25] MEDS ORDERED: Cefdinir 300 MG CAPSULE PO SCH (21:00)
[2019-02-26] MEDS ORDERED: Azithromycin 250 MG TABLET PO SCH (09:00)
[2019-02-26] MEDS ORDERED: Spironolactone 25 MG TABLET PO SCH (09:00)
[2019-02-26] MEDS ORDERED: Furosemide 40 MG TABLET PO SCH (09:00)
== END 2019-02-25 16:42 | disposition home or self-care (01) | DRG 291 ==
LOC: 2NENU 14:21 → EMEROOARM 14:21 → 2NENU 19:33
PROVIDERS: ADMIT Internal Medicine Nephrology; ATTEND Internal Medicine Nephrology